=== PATIENT | male | born 2000 | race Caucasian/White ===

== ENCOUNTER 2019-02-11 06:30 | Emergency (ER) | payer BC ==
[2019-02-11] MEDS ORDERED: NS 0.9% 1000 ML** 1,000 ML IV.FLUID IV ONE (06:49)
[2019-02-11] MEDS ORDERED: Piperacillin/Tazobac ADVAN(*) 3.375 GM in NS 0.9% 100 ML* 100 ML IVPB ONE (06:53)
[2019-02-11] MEDS ORDERED: Vancomycin(*) 1,000 MG VIAL IVPB SCH (07:00)
[2019-02-11] MEDS ORDERED: Vancomycin 1500 MG IV - x ONCE IVPB ONE ×2 (07:15)
[2019-02-11 07:24] LABS: Rapid Strep Molecular Negative (Negative)
[2019-02-11 07:31] LABS: Influenza A Molecular NEGATIVE (Negative); Influenza B Molecular NEGATIVE (Negative)
[2019-02-11] MEDS ORDERED: Ibuprofen TAB* 600 MG PO ONE (07:46)
[2019-02-11 07:54] LABS: Activated Partial Thrombo Time 39.7 seconds (26.0-38.0); INR 1.51 (0.82-1.09)
[2019-02-11 08:12] LABS: Albumin 3.8 g/dL (3.2-5.2); Albumin/Globulin Ratio 1.2 (1-3); BUN/Creatinine Ratio 9.9 (8-20); C Reactive Protein 197.06 mg/L (<8.01); Calcium 8.9 mg/dL (8.6-10.3); EGFR African American 102.2 (>60); EGFR Non-African American 84.5 (>60); Globulin 3.3 g/dL (2-4); Potassium 3.6 mmol/L (3.5-5.0); Total Bilirubin 0.4 mg/dL (0.2-1.0); Total Protein 7.1 g/dL (6.4-8.9)
[2019-02-11 08:21] LABS: ABS Eosinophils 0.1 10^3/ul (0-0.6); ABS Lymphocytes 0.8 10^3/ul (1.0-4.8); ABS Monocytes 0.4 10^3/ul (0-0.8); ABS Neutrophils 5.7 10^3/ul (1.5-7.7); Hematocrit 40 % (42-52); Hemoglobin 13.7 g/dL (14.0-18.0); Lymphocyte % 11.8 %; Mean Corpuscular HGB Conc 34 g/dL (31-36); Mean Corpuscular Hemoglobin 28 pg (27-31); Mean Corpuscular Volume 83 fL (80-94); Mean Platelet Volume 7.9 fL (7.4-10.4); Platelet Count 184 10^3/uL (150-450); Red Blood Count 4.83 10^6 /uL (4.18-5.48); Red Cell Distribution Width 13 % (10-15); White Blood Count 7.1 10^3/uL (3.5-10.8)
[2019-02-11 08:22] LABS: Troponin I 0.08 ng/mL (<0.03)
--- NOTE | 2019-02-11 08:29 | ED ---
HPI Febrile Illness - HPI Summary HPI Summary: This patient is a 18-year-old male who is otherwise healthy presenting to the ED with febrile illness times approximately 3-1/2 days. He first noticed feeling ill approximately Friday evening. He endorses fevers, sweats, chills, cough and congestion. Denies any chest pain or shortness of breath. Denies abdominal pain. Denies any urinary symptoms, diarrhea or constipation. Denies any flank pain. He states he is very fatigued and isn't sleeping frequently. He has been taking NyQuil and DayQuil as well as Tylenol and ibuprofen intermittently without much relief of his symptoms. Highest temperature at home 11.9 despite taking [id number] Tylenol and ibuprofen. Denies any sick contacts. Did not receive his flu vaccination this year. Otherwise up-to- date on immunizations. Unsure if anyone from his dorm has been sick, however he has not been there for over one week. He does endorse cough and congestion, however without production. Denies any stiff neck or photophobia. PMHx: Social hx: non-smoker, no alcohol use, student Surg hx: None - History of Current Complaint Chief Complaint: EDFever Time Seen by Provider: 02/11/19 06:42 Hx Obtained From: Patient, Family/Certified Personal Trainer Onset/Duration: Started Days Ago Timing: Constant Initial Severity: Moderate Current Severity: Moderate Pain Intensity: 0 Pain Scale Used: 0-10 Numeric Aggravating Factors: Nothing Alleviating Factors: Nothing Associated Signs and Symptoms: Chills, Cough, Diaphoresis, Nausea, Night Sweats , Sore Throat - Risk Factors Pseudomonas Risk Factors: Negative Serious Bacterial Infection Risk Factors: Negative - Allergy/Home Medications Allergies/Adverse Reactions: Allergies Allergy/AdvReac Type Severity Reaction Status Date / Time tomato Allergy See Comment Verified 02/11/19 06:34 PMH/Surg Hx/FS Hx/Imm Hx Previously Healthy: Yes - Immunization History Hx Pertussis Vaccination: No Immunizations Up to Date: Yes Infectious Disease History: No Infectious Disease History: Denies: Traveled Outside the [place] in Last 30 Days - Social History Occupation: Unemployed, Student Lives: Dormitory/Roommates Alcohol Use: None Hx Substance Use: No Substance Use Type: Reports: None Hx Tobacco Use: No Smoking Status (MU): Never Smoked Tobacco Have You Smoked in the Last Year: No Review of Systems Positive: Fever, Chills, Fatigue, Skin Diaphoresis Negative: Blurred Vision, Diplopia Positive: Sore Throat. Negative: Epistaxis, Dental Pain, Ear Ache, Nasal Discharge Negative: Palpitations, Chest Pain Positive: Cough. Negative: Shortness Of Breath Negative: Abdominal Pain, Vomiting, Diarrhea, Nausea Positive: see HPI Negative: Arthralgia, Myalgia Negative: Rash, Bruising Negative: Headache, Weakness, Paresthesia, Numbness, Syncope, Slurred Speech Psychological: Normal All Other Systems Reviewed And Are Negative: Yes Physical Exam Triage Information Reviewed: Yes Vital Signs On Initial Exam: Initial Vitals Temp Pulse Resp BP Pulse Ox 101.6 F 136 22 114/63 93 02/11/19 06:33 02/11/19 06:33 02/11/19 06:33 02/11/19 06:33 02/11/19 06:33 Vital Signs Reviewed: Yes Appearance: Positive: Well-Nourished, Ill-Appearing, Obese Skin: Positive: Diaphoretic Head/Face: Positive: Normal Head/Face Inspection Eyes: Positive: EOMI, JUAN CARLOS, Conjunctiva Clear Neck: Positive: Supple, Nontender, No Lymphadenopathy Respiratory/Lung Sounds: Positive: Rhonchi - mild bilaterally. Negative: Wheezes, Unable to speak in full sentences, Fatigue Cardiovascular: Positive: Tachycardia. Negative: Leg Edema Left, Leg Edema Right Abdomen Description: Positive: Nontender, No Organomegaly, Soft Musculoskeletal: Positive: Normal, Strength/ROM Intact Neurological: Positive: Sensory/Motor Intact, Alert, Oriented to Person Place, Time, Speech Normal Psychiatric: Positive: Normal, Affect/Mood Appropriate AVPU Assessment: Alert Procedures - Sedation Patient Received Moderate/Deep Sedation with Procedure: No Diagnostics - Vital Signs Vital Signs Temp Pulse Resp BP Pulse Ox 02/11/19 08:00 118 25 97 02/11/19 07:41 128 26 112/69 97 02/11/19 07:05 125 17 95 02/11/19 06:44 125 25 116/57 94 02/11/19 06:33 101.6 F 136 22 114/63 93 - Laboratory Lab Results: Lab Results 02/11/19 02/11/19 02/11/19 Range/Units 06:55 06:55 07:19 WBC 7.1 (3.5-10.8) 10^3/uL RBC 4.83 (4.18-5.48) 10^6 /uL Hgb 13.7 L (14.0-18.0) g/dL Hct 40 L (42-52) % MCV 83 (80-94) fL MCH 28 (27-31) pg MCHC 34 (31-36) g/dL RDW 13 (10-15) % Plt Count 184 (150-450) 10^3/uL MPV 7.9 (7.4-10.4) fL Neut % (Auto) 79.4 % Lymph % (Auto) 11.8 % [place] % (Auto) 6.2 % Eos % (Auto) 2.0 % Baso % (Auto) 0.6 % Absolute Neuts (auto) 5.7 (1.5-7.7) 10^3/ul Absolute Lymphs (auto) 0.8 L (1.0-4.8) 10^3/ul Absolute Monos (auto) 0.4 (0-0.8) 10^3/ul Absolute Eos (auto) 0.1 (0-0.6) 10^3/ul Absolute Basos (auto) 0.0 (0-0.2) 10^3/ul Absolute Nucleated RBC 0.0 10^3/ul Nucleated RBC % 0.0 INR (Anticoag Therapy) (0.82-1.09) APTT (26.0-38.0) seconds Sodium (135-145) mmol/L Potassium (3.5-5.0) mmol/L Chloride (101-111) mmol/L Carbon Dioxide (22-32) mmol/L Anion Gap (2-11) mmol/L BUN (6-24) mg/dL Creatinine (0.67-1.17) mg/dL Est GFR ( Amer) (>60) Est GFR (Non-Af Amer) (>60) BUN/Creatinine Ratio (8-20) Glucose (70-100) mg/dL Lactic Acid (0.5-2.0) mmol/L Calcium (8.6-10.3) mg/dL Total Bilirubin (0.2-1.0) mg/dL AST (13-39) U/L ALT (7-52) U/L Alkaline Phosphatase (34-104) U/L Troponin I (<0.03) ng/mL C-Reactive Protein (<8.01) mg/L Total Protein (6.4-8.9) g/dL Albumin (3.2-5.2) g/dL Globulin (2-4) g/dL Albumin/Globulin Ratio (1-3) Monoscreen (Negative) Influenza A (Rapid) Negative (Negative) Influenza B (Rapid) Negative (Negative) Group A Strep Rapid Negative (Negative) 02/11/19 02/11/19 02/11/19 Range/Units 07:27 07:27 07:28 WBC (3.5-10.8) 10^3/uL RBC (4.18-5.48) 10^6 /uL Hgb (14.0-18.0) g/dL Hct (42-52) % MCV (80-94) fL MCH (27-31) pg MCHC (31-36) g/dL RDW (10-15) % Plt Count (150-450) 10^3/uL MPV (7.4-10.4) fL Neut % (Auto) % Lymph % (Auto) % [place] % (Auto) % Eos % (Auto) % Baso % (Auto) % Absolute Neuts (auto) (1.5-7.7) 10^3/ul Absolute Lymphs (auto) (1.0-4.8) 10^3/ul Absolute Monos (auto) (0-0.8) 10^3/ul Absolute Eos (auto) (0-0.6) 10^3/ul Absolute Basos (auto) (0-0.2) 10^3/ul Absolute Nucleated RBC 10^3/ul Nucleated RBC % INR (Anticoag Therapy) 1.51 H (0.82-1.09) APTT 39.7 H (26.0-38.0) seconds Sodium 135 (135-145) mmol/L Potassium 3.6 (3.5-5.0) mmol/L Chloride 103 (101-111) mmol/L Carbon Dioxide 23 (22-32) mmol/L Anion Gap 9 (2-11) mmol/L BUN 11 (6-24) mg/dL Creatinine 1.11 (0.67-1.17) mg/dL Est GFR ( Amer) 102.2 (>60) Est GFR (Non-Af Amer) 84.5 (>60) BUN/Creatinine Ratio 9.9 (8-20) Glucose 113 H (70-100) mg/dL Lactic Acid 1.0 (0.5-2.0) mmol/L Calcium 8.9 (8.6-10.3) mg/dL Total Bilirubin 0.40 (0.2-1.0) mg/dL AST 13 (13-39) U/L ALT 21 (7-52) U/L Alkaline Phosphatase 84 (34-104) U/L Troponin I 0.08 H* (<0.03) ng/mL C-Reactive Protein 197.06 H (<8.01) mg/L Total Protein 7.1 (6.4-8.9) g/dL Albumin 3.8 (3.2-5.2) g/dL Globulin 3.3 (2-4) g/dL Albumin/Globulin Ratio 1.2 (1-3) Monoscreen (Negative) Influenza A (Rapid) (Negative) Influenza B (Rapid) (Negative) Group A Strep Rapid (Negative) 02/11/19 Range/Units 07:28 WBC (3.5-10.8) 10^3/uL RBC (4.18-5.48) 10^6 /uL Hgb (14.0-18.0) g/dL Hct (42-52) % MCV (80-94) fL MCH (27-31) pg MCHC (31-36) g/dL RDW (10-15) % Plt Count (150-450) 10^3/uL MPV (7.4-10.4) fL Neut % (Auto) % Lymph % (Auto) % [place] % (Auto) % Eos % (Auto) % Baso % (Auto) % Absolute Neuts (auto) (1.5-7.7) 10^3/ul Absolute Lymphs (auto) (1.0-4.8) 10^3/ul Absolute Monos (auto) (0-0.8) 10^3/ul Absolute Eos (auto) (0-0.6) 10^3/ul Absolute Basos (auto) (0-0.2) 10^3/ul Absolute Nucleated RBC 10^3/ul Nucleated RBC % INR (Anticoag Therapy) (0.82-1.09) APTT (26.0-38.0) seconds Sodium (135-145) mmol/L Potassium (3.5-5.0) mmol/L Chloride (101-111) mmol/L Carbon Dioxide (22-32) mmol/L Anion Gap (2-11) mmol/L BUN (6-24) mg/dL Creatinine (0.67-1.17) mg/dL Est GFR ( Amer) (>60) Est GFR (Non-Af Amer) (>60) BUN/Creatinine Ratio (8-20) Glucose (70-100) mg/dL Lactic Acid (0.5-2.0) mmol/L Calcium (8.6-10.3) mg/dL Total Bilirubin (0.2-1.0) mg/dL AST (13-39) U/L ALT (7-52) U/L Alkaline Phosphatase (34-104) U/L Troponin I (<0.03) ng/mL C-Reactive Protein (<8.01) mg/L Total Protein (6.4-8.9) g/dL Albumin (3.2-5.2) g/dL Globulin (2-4) g/dL Albumin/Globulin Ratio (1-3) Monoscreen Negative (Negative) Influenza A (Rapid) (Negative) Influenza B (Rapid) (Negative) Group A Strep Rapid (Negative) Result Diagrams: 02/11/19 07:19 02/11/19 07:27 Lab Statement: Any lab studies that have been ordered have been reviewed, and results considered in the medical decision making process. Course/Dx - Course Course Of Treatment: During this was treatment, the patient is evaluated for febrile illness, tachycardia, sweats and chills, cough and congestion over the past 4 days. Patient states he is also very fatigued. On arrival into the ED, the vital signs show febrile illness of 101.6, 136 tachy, 22 respirations, 93% on RA and 114/63. Septic workup initiated. Patient was given 2700 mL normal saline. Zosyn given. Motrin given. Labs obtained which show a normal white count, however an elevated CRP. Blood cultures obtained and are pending. Influenza negative, strep swab negative, Monospot negative. Chest x-ray shows a left lower lobe pneumonia. He does have an elevated troponin of 0.08. This was repeated and confirmed at 0.08. 3 hours later this was repeated at 0.07. Discussed case with mother, father and patient who all agree they are safe to be discharged at this time. Patient continues to deny any shortness of breath or chest pain. 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 Likely elevated troponin is due to her stress from PNA. Heart score equals 1. Low score. Risk of Mace of 0.9-1.7%. Patient is given a Zithromax 2 tabs tomorrow and one tab 4 days. Encouraged to follow up with PCP and/or return to the ED if he develops any worsening symptoms. - Febrile Illness Differential Diagnoses: Bacteremia, Fever of Unknown Origin, Pneumonia - Diagnoses Provider Diagnoses: Pneumonia Discharge ED - Sign-Out/Discharge Documenting (check all that apply): Patient Departure - Discharge Plan Condition: Stable Disposition: HOME Prescriptions: Azithromycin 250 mg PO DAILY #6 tablet Azithromycin 250 mg PO DAILY #6 tablet Patient Education Materials: Pneumonia (ED) Referrals: Hai Ponce MD [Primary Care Provider] - Additional Instructions: Drink plenty of fluids Take 2 tabs azithromycin tomorrow morning and 1 tab daily times the next 4 days Take Tylenol and ibuprofen intermittently Get rest as much as possible Return to activities in about 3-4 days - Billing Disposition and Condition Condition: STABLE Disposition: Home - Attestation Statements Provider Attestation: I was available for consultation for this patient. I did not evaluate the patient or participate in any medical decision making or disposition decisions unless I am specifically named in the chart as having consulted on the patient. If I have consulted on the patient, please see my own ED note on the patient encounter. Zelda Sanders MD
[2019-02-11] MEDS ORDERED: fentaNYL* 50 MCG/ML 2 ML VIAL (100 MCG VIAL) IV SLOW PU ONE (10:41)
[2019-02-11 11:19] LABS: Troponin I 0.07 ng/mL (<0.03)
[2019-02-11 11:37] VITALS: BP 116/79
== END 2019-02-11 11:37 | disposition home or self-care (01) ==
LOC: ED 06:30
DX: J18.9 Pneumonia, unspecified organism (principal)
CPT/HCPCS: 36415; 71046; 80053; 83605; 84484; 85025; 85610; 85730; 86140; 86308; 87040; 87651; 93005; 96361; 96365; 99283; A9270-GY; J2543; J3370